=== PATIENT | male | born 1995 | race Caucasian/White ===

== ENCOUNTER → 2020-07-30 14:58 | Outpatient (BNVA) | payer OTHER, SELFPAY | PROVIDERS: PCP Internal Medicine; Visit Provider Hospitalist | DX: Z76.89 Persons encountering health services in other specified circumstances (principal) ==

== ENCOUNTER → 2021-10-22 14:39 | Outpatient (BNVA) | payer OTHER, SELFPAY | PROVIDERS: PCP Internal Medicine; Visit Provider Hospitalist ==

== ENCOUNTER 2024-06-07 13:22 | Outpatient (AMB) | payer OTHER, SELFPAY ==
--- NOTE | 2024-06-07 13:27 | MHC.OFFVIS ---
Vital Signs 06/07/24 13:28 Height 5 ft 5 in Weight 215 lb BMI 35.8 BP 126/78 Blood Pressure Location Lt brachial Position Sitting Pulse 83 Pulse Source Pulse Oximeter Pulse Oximetry (%) 97 Oxygen Delivery Method Room Air Intake Visit Reasons: Asthma Program And Research Coordinator Required: No Allergies No Known Allergies Allergy (Verified 06/07/24 13:31) HPI Comments Details: The patient is a 26-year-old gentleman with a known history of asthma and chronic allergic rhinitis. His asthma had been in good control. Had been on the singular daily. And was not using his rescue inhaler more than once or twice a month. 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 Since he has been working there he has had more worsening respiratory symptoms along with chest tightness wheezing and coughing. Moderate severity. He has been using his rescue inhaler more regularly now more than twice a week. He has also had some nasal congestion. He is also states that he has been dealing with some panic issues. He has had some panic attacks in that is been causing his respiratory status get worse as well. Recently was started on a mood stabilizer. He also was given a prescription for lorazepam but he opted not to fill it. He is also looking into getting counseling which I think is some very important for him. 06/07/2024 the patient is here for a pulmonary follow-up visit. Overall he is doing very well. Continues use the antihistamine with good effect. He backed off on the Singulair and seems to be doing well without it. Can always uses seasonally if need be. He also has a rescue inhaler. He does not use his rescue inhaler often. The patient will need refills at this time. No recent imaging studies to review. No recent pulmonary function studies to review. We did talk about considering allergy shots specially since he has allergic asthma. However, allergy shots will be difficult time to do at this time. One other option will be for him to do local honey as the mild intervention to try to exposed him to the local allergens and try to modify the immune system. Otherwise patient is without other complaints. Will follow-up in a year's time. If the patient develops any worsening symptoms prior to that he will call for an earlier assessment. [facility] Medical History (Updated 06/07/24 @ 13:54 by Zachary Burgos MD) Chronic allergic rhinitis Asthma Social History (Updated 10/22/21 @ 14:40 by WILLIAM Alfaro) Patient Tobacco Use Status: Never used Tobacco Review of Systems Const Denies night sweats ENT Denies change in voice, Denies lip swelling, Denies mouth pain, Reports nasal congestion, Reports nasal discharge and Denies tongue swelling Card Denies chest pain Resp Denies cough GI Denies abdominal pain Musc Denies no additional complaints Neuro Denies Neuro-related abnormal movements Psych Denies no additional complaints Cj/Lymph Denies easy bleeding and Denies lymphadenopathy Aller/Immun Denies lip swelling and Denies tongue swelling Physical Exam Vital Signs: Last Vital Signs Pulse 83 06/07/24 13:28 BP 126/78 06/07/24 13:28 Pulse Ox 97 06/07/24 13:28 Oxygen Delivery Method Room Air 06/07/24 13:28 BMI result Body Mass Index 35.8 Const General: comfortable and alert HEENT Head: Yes normocephalic General nose exam: Abnormal external nose present and Nasal discharge present Eyes Pupils: Equal, round and reactive pupils present Neck Neck: Yes normal visual inspection, Yes full ROM and Yes no lymphadenopathy Chest Chest palpation & inspection: normal inspection of the chest Resp Effort & Inspection: normal respiratory effort Auscultation: clear to auscultation bilaterally Cardio Rate: regular rate Rhythm: regular rhythm Heart sounds: S1 normal heart sound present and S2 normal heart sound present GI Palpation (GI): Soft to palpation and nontender Auscultation: normal bowel sounds General: Yes no CVA tenderness Back/Spine/Pelvis Back: no CVA tenderness Skin General skin exam: no rashes or lesions noted Neuro Cranial nerves: Yes Equal, round and reactive pupils present Extrem General: Yes no clubbing, cyanosis or edema Assessment & Plan Assessment & Plan (1) Asthma: Code(s): J45.909 - Unspecified asthma, uncomplicated Category: Medical Qualifiers: Asthma complication type: unspecified Asthma persistence: persistent Asthma severity: mild Qualified Code(s): J45.30 - Mild persistent asthma, uncomplicated Plan: Continue short-acting beta agonist as needed Consider maintenance inhaler if symptoms persist Continue singular daily (2) Chronic allergic rhinitis: Code(s): J30.9 - Allergic rhinitis, unspecified Category: Medical Plan: Antihistamines as needed Nasal rinsing Plan holding Singulair, consider seasonally BERTA as needed Anti histamines as needed nasal rinsing consider allergy shots F/U 1 year Medications: Refilled albuterol sulfate 90 mcg/actuation 2 puffs inhalation Q6H PRN 8.5 grams 11RF shortness of breath or wheezing Coding Level of Care Code Est Pt Level 4 (06606) Diagnoses Mild persistent asthma, unspecified whether complicated J45.30 Asthma complication type: unspecified Asthma persistence: persistent Asthma severity: mild Chronic allergic rhinitis J30.9 Time Spent (min) 15
[2024-06-07 13:28] VITALS: BP 126/78; PULSE 83; O2SAT 97; BMI 35.8
== END 2024-06-07 14:41 | disposition home or self-care (01) ==
PROVIDERS: PCP Internal Medicine; Visit Provider Hospitalist
DX: J45.30 Mild persistent asthma, uncomplicated (principal); J30.9 Allergic rhinitis, unspecified
CPT/HCPCS: 99214

== ENCOUNTER → 2024-06-07 13:22 | Outpatient (BNVA) | payer OTHER, SELFPAY | PROVIDERS: PCP Internal Medicine; Visit Provider Hospitalist | DX: J45.30 Mild persistent asthma, uncomplicated (principal); J30.9 Allergic rhinitis, unspecified | CPT/HCPCS: 99212 ==

== ENCOUNTER 2024-07-29 10:48 | Outpatient (REF) | payer OTHER, SELFPAY ==
--- NOTE | ~2024-07-29 | XR_ITS ---
EXAMINATION: XR THORACOLUMBAR SPINE CLINICAL INFORMATION: M54.9 - Dorsalgia, unspecified COMPARISON: None available. TECHNIQUE: 4 views of the lumbar spine FINDINGS: The vertebral bodies and posterior elements are normal. The vertebral alignment is normal. Paravertebral soft tissues are normal. There is decreased intervertebral disc space at T12-L1 on flexion versus extension. XR/XR lumbar spine 4V min IMPRESSION: Decreased intervertebral disc space at T12-L1 on flexion versus extension. Electronically signed by: Lanie Baker MD 08/23/2024 08:23 PM MICHELLE RODAS
== END 2024-07-29 10:49 | disposition home or self-care (01) ==
LOC: HO.HOSX 10:48
PROVIDERS: PCP Internal Medicine; Visit Provider Physician Assistant
DX: M54.9 Dorsalgia, unspecified (principal)
CPT/HCPCS: 72110; 99202

== ENCOUNTER 2024-07-29 10:48 | Outpatient (AMB) | payer OTHER, SELFPAY ==
--- NOTE | 2024-07-29 11:04 | A.SPINEOV_ITS ---
Intake Visit Reasons: Spinal stenosis Intake Note: Mr. Goins is here today c/o Low/Mid back pain. Talent Partner Required: No Allergies No Known Allergies Allergy (Verified 07/29/24 11:04) Assessment & Plan Assessment & Plan (1) Back pain: Code(s): M54.9 - Dorsalgia, unspecified Category: Medical Plan Dear Patel, Thank you for referring Mr Mcdaniels to our office today. He is a very nice 28-year-old gentleman who presents to the office today for evaluation of a chronic lower thoracic upper lumbar back pain that is been present for about a year now. He does not recall when it specifically started, he thinks it was sometime in the fall of last year. He may have had a fall from standing around the time it started but he can not really remember. He initially tried to just deal with it, doing activity modifications, stopping certain activities like running and intense exercise. Unfortunately it did not go away. He ultimately saw you in the office, trialed some physical therapy until he could get a lumbar MRI done which showed a T12-L1 large disc herniation on the right side with moderate central canal stenosis, no cord signal change seen. He was sent to us for an evaluation. He does not have any lower extremity symptoms to report, his bladder is working fine, no cauda equina symptoms. The main symptom is the back pain. He seems to do okay sleeping but when he is up and moving around especially with his arms extended forward he can make the pain aggravated. When he is at work and doing certain activities by the end of the day he has to go home and get on a heating pad. This keeps him from doing some of the activities he enjoys with his friends etc.. He will take ibuprofen, Tylenol or leave. They do not seem to do much for him. PMH: Asthma, anxiety Social hx: He does not smoke cigarettes, occasionally uses alcohol and CBD/THC for anxiety Medications: Buspirone, albuterol, Zyrtec Allergies: None Physical exam: He is awake alert oriented no acute distress, his pain localizes right over the thoracolumbar junction. Strength in sensation are normal in the lower extremities. He does have clonus in his ankles, 3+ reflexes the patella. Toes are downgoing. Imaging review: Lumbar MRI done at the [facility] shows large disc herniation off to the right side at T12-L1 causing moderate central canal stenosis. No cord signal change seen. Impression: 28-year-old male who has been dealing with 1 year progressive back pain at the thoracolumbar junction, steadily getting worse, did not respond to conservative treatment in the form of tincture of time, activity modifications, anti-inflammatories and therapy. He does have a large disc herniation off to the right at T12-L1, causing moderate stenosis, no cord signal change. He does have hyperreflexia in the lower extremities but no active symptoms of weakness, numbness or strength loss on my exam. Toes are downgoing. He is on antidepressants and these can cause hyperreflexia. I showed him his MRI, went through the anatomy with him. At this time he is not having myelopathic symptoms, his main symptom is back pain. We did talk about the fact that if he does develop them, he should contact us right away about surgery. In the interim, I am going to get standing AP lateral flexion-extension views, review his imaging with Dr. Umanzor and get back to the patient with a final plan. Thank you for allowing us to care for your patient. The total time spent with this visit with this patient was 45 minutes reviewing history, physical exam, lumbar imaging review, and implementation of treatment plan or further diagnostic testing Gus Umanzor MD,PhD [facility] Orders: Orders XR lumbar spine 4V min Today M54.9 - Dorsalgia, unspecified Coding Level of Care Code New Pt Level 4 (52778) Diagnoses Back pain M54.9
== END 2024-07-29 12:07 | disposition home or self-care (01) ==
PROVIDERS: PCP Internal Medicine; Referring Provider Physician Assistant; Visit Provider Physician Assistant
DX: M54.9 Dorsalgia, unspecified (principal)
CPT/HCPCS: 99204

== ENCOUNTER 2024-08-23 07:38 | Outpatient (REF) | payer OTHER, SELFPAY ==
--- NOTE | ~2024-08-23 | CT_ITS ---
EXAMINATION: CT LUMBAR SPINE WITHOUT CONTRAST CLINICAL INFORMATION: Dorsalgia COMPARISON: None available. TECHNIQUE: Axial CT of the lumbar spine without contrast. Coronal sagittal reformats reviewed. This CT examination was performed using dose optimization techniques as appropriate, variously including the following: *Automated exposure control *Adjustment of mA and/or kV according to patient size (this includes techniques or standardized protocols for targeted exams where dose is matched to indication/reason for exam; i.e. extremities or head) *Use of iterative reconstruction technique DLP; 882 mGy-cm FINDINGS: There are 5 lumbar vertebral bodies. Vertebral body heights and intervertebral disc spaces are maintained. There is a Schmorl's node at the superior right L4 endplate. There is a disc osteophyte complex eccentric to the right at the T12-L1 level resulting in mild canal stenosis and moderate right foraminal stenosis. There is otherwise no significant spinal canal or foraminal stenosis throughout the remainder of the lumbar spine. The paravertebral soft tissues are unremarkable. CT/CT lumbar spine wo IV con IMPRESSION: Disc osteophyte complex at the T12-L1 level resulting in mild canal stenosis and moderate right foraminal stenosis. Electronically signed by: Lanie Baker MD 08/23/2024 08:22 PM MICHELLE
== END 2024-08-23 07:39 | disposition home or self-care (01) ==
LOC: HO.CT 07:38
PROVIDERS: PCP Internal Medicine; Visit Provider Physician Assistant
DX: M54.9 Dorsalgia, unspecified (principal)
CPT/HCPCS: 72131

== ENCOUNTER 2024-09-06 11:21 | Outpatient (AMB) | payer OTHER, SELFPAY ==
--- NOTE | 2024-09-06 11:38 | A.SPINEOV_ITS ---
Intake Visit Reasons: follow up on a day is here Intake Note: Mr. Mcdaniels is here today for a F/u. Transportation Project Manager Required: No Allergies No Known Allergies Allergy (Verified 09/06/24 11:39) Assessment & Plan Assessment & Plan (1) Back pain: Code(s): M54.9 - Dorsalgia, unspecified Category: Medical Plan Mr Mcdaniels is here in follow-up. He reports that his back pain is better, he is only getting occasional flare-ups at this time. Denies any tingling numbness or focal weakness in the legs. CT scan showed that he has a little bit of calcification around the disc but it is not fully calcified. The plan was to do a T12-L1 microdiskectomy with metrics tubes, but since he is feeling better, we will just continue to monitor him. I examined him again today in his strength in his legs is excellent, some hyperreflexia in the lower extremities with clonus. We are just monitoring the situation for now since he has no neurological deficits or symptoms and his back pain is better. Dr. Umanzor updated on the patient's status. We will see him back in 1 month. Total amount of time spent in this visit was 20 minutes in discussion of symptoms, lumbar CT scan imaging results and subsequent plan of care Gus Umanzor MD,PhD [facility] Coding Level of Care Code Est Pt Level 3 (27161) Diagnoses Back pain M54.9
== END 2024-09-06 12:13 | disposition home or self-care (01) ==
PROVIDERS: PCP Internal Medicine; Visit Provider Physician Assistant
DX: M54.9 Dorsalgia, unspecified (principal)
CPT/HCPCS: 99213

== ENCOUNTER → 2024-09-06 11:21 | Outpatient (BNVA) | payer OTHER, SELFPAY | PROVIDERS: PCP Internal Medicine; Visit Provider Physician Assistant | DX: M54.9 Dorsalgia, unspecified (principal) | CPT/HCPCS: 99212 ==

== ENCOUNTER → 2024-10-11 13:05 | Outpatient (BNVA) | payer OTHER, SELFPAY | PROVIDERS: PCP Internal Medicine; Visit Provider Physician Assistant | DX: M54.9 Dorsalgia, unspecified (principal) | CPT/HCPCS: 99212 ==

== ENCOUNTER 2025-01-10 11:25 | Outpatient (AMB) | payer OTHER, SELFPAY ==
--- NOTE | 2025-01-10 11:30 | A.SPINEOV_ITS ---
Intake Visit Reasons: 3 month follow up Intake Note: Mr. Mcdaniels is here today for a 3 month F/u. Behavioral Psychologist Required: No Allergies No Known Allergies Allergy (Verified 01/10/25 11:34) Assessment & Plan Assessment & Plan (1) Back pain: Code(s): M54.9 - Dorsalgia, unspecified Category: Medical Plan Mr Mcdaniels came back in today for follow-up. He has been doing very well. His low back symptoms are for the most part gone. He will feel them from time to time but he has been able to extend his activities and is living a much more active life. He has not returned to doing gym activities, but really isn't pressed or feeling the need to jump back into those right away any way. Has not had any lower extremity symptoms, no bowel or bladder symptoms, no issues with erection. His strength is excellent, gait is normal. We had previously discussed with Dr. Umanzor, if his symptoms are not getting worse and he is having no neurological deficits, there is no role for surgery so we will just continue to monitor and I will see him back in 6 months. Total amount of time spent in this visit was 20 minutes in discussion of symptoms, lumbar imaging results and subsequent plan of care Gus Umanzor MD,PhD [facility] Coding Level of Care Code Est Pt Level 3 (51910) Diagnoses Back pain M54.9
== END 2025-01-10 11:50 | disposition home or self-care (01) ==
LOC: HO.HNS 11:26
PROVIDERS: PCP Internal Medicine; Visit Provider Physician Assistant
DX: M54.9 Dorsalgia, unspecified (principal)
CPT/HCPCS: 99213

== ENCOUNTER → 2025-01-10 11:25 | Outpatient (BNVA) | payer OTHER, SELFPAY | PROVIDERS: PCP Internal Medicine; Visit Provider Physician Assistant | DX: M54.9 Dorsalgia, unspecified (principal) | CPT/HCPCS: 99212 ==

== ENCOUNTER 2025-07-18 13:20 | Outpatient (AMB) | payer OTHER, SELFPAY ==
--- NOTE | 2025-07-18 13:36 | HO.SPINEOV ---
Intake Visit Reasons: 6 month f/u Intake Note: Mr. Mcdaniels is here today for a 6 month F/u. Member Certification Manager Required: No Allergies No Known Allergies Allergy (Verified 01/10/25 11:34) Assessment & Plan Assessment & Plan (1) Back pain: Code(s): M54.9 - Dorsalgia, unspecified Category: Medical Plan Mr Mcdaniels is here in follow-up. He continues to do well in terms of his improvement compared to last year. He has back pain on and off from time to time with occasional flare-ups. Sometimes these will be worse than others, but not nearly as bad as they were a year ago. He is back to work and seems to be functioning normal. Denies any lower extremity symptoms, no bowel or bladder incontinence etc.. On exam his strength is normal, gait is normal, still has some hyperreflexia but that is his baseline. I would like to order follow-up imaging just to be able to give him some reassurance that the disc herniation has gone away and allow him to resume activities as tolerated. He is a very young gentleman and I would like to be able to offer him peace of mind that he can return to his activities without restriction. Because he does have just a little bit of back pain persistent and his hyperreflexia I think it is worth looking into. Total amount of time spent in this visit was 20 minutes in discussion of symptoms, ordering imaging and subsequent plan of care Gus Umanzor MD,PhD [facility] Orders: Orders MR thoracic spine wo con Today M54.9 - Dorsalgia, unspecified Coding Level of Care Code Est Pt Level 3 (87877) Diagnoses Back pain M54.9
--- OUTSIDE RECORDS SUMMARY | 2025-07-18 14:25 | XMS_ITS | Clinical Summary ---
Author Organization Patient Business Ser [facility] Address [address] [place] [address] Care Team Providers Care Environmental Marketing Representative Name Role Phone MatiTerry Primary Care Provider [phone] Encounters Date Type Department Care Team Description 05/15/2025 11:00 AM EDT Ancillary Procedure [facility] - [address] [place] [address] Lightheadedness; Syncope from Last 3 Months Social History Tobacco Use Types Packs/Day Years Used Date Smoking Tobacco: Never Assessed Sex and Gender Information Value Date Recorded Sex Assigned at Not on file Legal Sex Male 2:13 AM EST Gender Identity Not on file Sexual Orientation Not on file Last Filed Vital Signs Vital Sign Reading Time Taken Comments Blood Pressure 133/83 05/15/2025 11:45 AM EDT Pulse - - Temperature - - Respiratory Rate - - Oxygen Saturation - - Inhaled Oxygen Concentration - - Weight 98.4 kg (217 lb) 05/15/2025 11:45 AM EDT Height 165.1 cm (5' 5 ) 05/15/2025 11:45 AM EDT Body Mass Index 36.11 05/15/2025 11:45 AM EDT Plan of Treatment Health Maintenance Due Date Last Done Comments DTaP,Tdap,and Td Vaccines (7 - Td or Tdap) 10/23/2017 10/23/2007, 03/29/2002, 06/16/1999, Additional history exists Depression Screening 09/18/2024 HPV Vaccines (1 - 3-dose SCDM series) 2024 HIV Screening 04/01/2025 Hepatitis C Screening 04/01/2025 Social Influencers of Health Screening 04/01/2025 COVID-19 Vaccine ( season) 2025 Influenza Vaccine (#1) 2025 Cholesterol Screening (Lipid Panel) 04/01/2030 04/01/2025 RSV Immunization Adult Patients (1 - 1-dose 75+ series) 2072 Hepatitis B Vaccines Completed 07/27/1998, 1997, 1997 HIB Vaccines Completed 03/12/1999, 12/1997, 02/16/1998, Additional history exists IPV Vaccines Completed 03/29/2002, 05/20, 02/16/1998, Additional history exists MMR Vaccines Completed 03/29/2002, 03/12/1999 Meningococcal ACWY Vaccine Aged Out 03/19/2010 N o longer eligible based on patient's age to complete this topic Varicella Vaccines Completed 03/19/2010, 11/03/1998 Hepatitis A Vaccines Aged Out No long er eligible based on patient's age to complete this topic Meningococcal B Vaccine Aged Out No l onger eligible based on patient's age to complete this topic Pneumococcal Vaccine: Pediatrics (0 to 5 Years) and At-Risk Patients (6 to 49 Years) Aged Out No longer eligible based on patient's age to complete this topic RSV Immunization Patients Under 20 months Aged Out No longer eligible based on patient's age to complete this topic Procedures Procedure Name Priority Date/Time Associated Diagnosis Comments TRANSTHORACIC ECHOCARDIOGRAM (TTE) COMPLETE Routine 05/15/2025 11:45 AM EDT Lightheadedness Syncope LIPID PANEL WITH REFLEX TO DIRECT LDL Routine 04/01/2025 9:18 AM EDT Routine general medical examination at a health care facility Light headed Asthma Insomnia from Last 3 Months or Most Recently Relevant to Health Maintenance Results * TRANSTHORACIC ECHOCARDIOGRAM (TTE) COMPLETE (05/15/2025 11:45 AM EDT) Left Atrium Minor [place] 5.7 cm CV PACS Left Atrium Major [place] 6.2 cm CV PACS LA Area Sys (A2C) 23 cm2 CV PACS LA Area Sys (A4C) 20 cm2 CV PACS LA Volume (BP) 63 mL CV PACS RA Area 15.7 cm2 CV PACS RA 2D Volume 39 mL CV PACS AV Mean Gradient 4 mmHg CV PACS AV Mean Gradient 4 mmHg CV PACS AV Mean Gradient 4 mmHg CV PACS AV Mean Gradient 4 mmHg CV PACS Ao VTI 28.4 cm CV PACS AV Peak Andrew 1.4 m/s CV PACS AV Peak Gradient 8 mmHg CV PACS AV Area Continuity Equation 1.9 cm2 CV PACS AV Area Peak Velocity 2.0 cm2 CV PACS Aortic Sinus Valsalva 2.9 cm CV PACS Ascending Aorta 3.1 cm CV PACS IVSD 0.9 0.6 - 1.0 cm CV PACS LVIDD 4.4 4.2 - 5.8 cm CV PACS LVIDS 2.6 2.5 - 4.0 cm CV PACS LVOT Diameter 1.9 cm CV PACS LVOT Mean Grad 2 mmHg CV PACS LVOT Peak VTI 19.2 cm CV PACS LVOT Mean Andrew 0.6 m/s CV PACS LVOT Peak Andrew 1.0 m/s CV PACS LVOT Peak Gradient 4 mmHg CV PACS LVPWD 0.9 0.6 - 1.0 cm CV PACS MV E' Tissue Velocity Lateral 13 cm/s CV PACS MV E' Tissue Velocity Septal 10 cm/s CV PACS LVOT Area 2.8 cm2 CV PACS LVOT Stroke Volume 55 mL CV PACS E Wave Deceleration Time 190 119 - 242 ms CV PACS MV Peak A Andrew 0.57 m/s CV PACS MV Peak E Andrew 0.76 m/s CV PACS MV Mean Gradient 1 mmHg CV PACS MV Mean Gradient 1 mmHg CV PACS MV Mean Gradient 1 mmHg CV PACS MV VTI 26.4 cm CV PACS Mitral Valve Max Velocity 0.9 m/s CV PACS MV Peak Gradient 3 mmHg CV PACS MV Area Continuity Equation 2.1 cm2 CV PACS PV Acceleration Time 130 ms CV PACS PV Acceleration Time 137 ms CV PACS PV Acceleration Time 134 ms CV PACS RV Diastolic Basal Dimension 3.0 2.5 - 4.1 cm CV PACS RV S' 14 cm/s CV PACS TAPSE 21 mm CV PACS E/E' Ratio Septal 8 CV PACS E/E' Ratio Averaged 7 CV PACS Relative Wall Thickness ratio 0.41 CV PACS LVOT:AV VTI Index 0.68 CV PACS FS 41 % CV PACS LV Mass 2D 128 g CV PACS MV VTI:LVOT VTI ratio 1.4 CV PACS LVOT flow 170 mL/s CV PACS AV Velocity Ratio 0.71 CV PACS E/A Ratio 1.3 CV PACS E/E' Ratio Lateral 6 CV PACS BSA 2.12 m2 CV PACS LA Volume Index (BP) 31 mL/m2 CV PACS LVIDD Index 2.15 cm/m2 CV PACS LVIDS Index 1.27 cm/m2 CV PACS LV Mass Index 2D 62 50 - 102 g/m2 CV PACS LVOT Stroke Index 27 mL/m2 CV PACS RA 2D Volume Index 19 18 - 32 mL/m2 CV PACS KHRIS Index (VTI) 0.93 cm2/m2 CV PACS KHRIS Index (Pk Andrew) 0.98 cm2/m2 CV PACS Ascending Aorta Index 1.51 cm/m2 CV PACS Anatomical Region Laterality Modality Ultrasound Narrative 06/02/2025 4:46 PM EDT 1. Normal biventricular size and systolic function. Normal left ventricular regional wall motion with an ejection fraction of 60 to 65%. 2. No hemodynamically significant valve disease. 3. Normal left ventricular diastolic function. Technically adequate, 2D, M-mode, and Doppler echocardiogram without significant pathologic findings. Left Ventricle Left ventricle cavity size is normal. Wall thickness is normal. Systolic function is normal with an ejection fraction of 60-65%. There are no regional LV wall motion abnormalities. There is no diastolic dysfunction and normal left atrial pressure. Right Ventricle Right ventricle cavity appears normal. Systolic function is normal. Left Atrium Left atrium cavity size is normal. Right Atrium Right atrium cavity is normal. IVC/SVC Inferior vena cava structure is normal. RA pressures is estimated to be 3 mmHg (IVC diameter <21 mm and decreases >50% during inspiration). Mitral Valve Mitral valve structure is normal. The leaflets exhibit normal excursion. There is no regurgitation or stenosis. Tricuspid Valve Tricuspid valve structure is normal. There is trace regurgitation. There is no evidence of tricuspid valve stenosis. Cannot assess RVSP. Aortic Valve The aortic valve is trileaflet. There is no regurgitation or stenosis. Pulmonic Valve Visualized portions of the pulmonic valve appear normal. No significant pulmonic valve regurgitation. There is no evidence of pulmonic valve stenosis. Ascending Aorta The aorta appears normal in size. Pericardium Pericardium appears normal. There is no pericardial effusion. Study Details Overall the study quality was adequate. Wall Scoring Baseline Score Index: 1.00 The left ventricular wall motion is normal. us Terry Thorne DO CV ECHO PROCEDURES Final Resu lt * Lipid panel with reflex to direct LDL (04/01/2025 9:18 AM EDT) Cholesterol 162 0 - 200 mg/dL LAB CHEMISTRY METHOD 04/01/2025 12:29 PM EDT [facility] Triglycerides 67 0 - 150 mg/dL LAB CHEMISTRY METHOD 04/01/2025 12:29 PM EDT [facility] HDL 52 >=40 mg/dL LAB CHEMISTRY METHOD 04/01/2025 12:29 PM EDT [facility] LDL Calculated 97 0 - 100 mg/dL LAB CHEMISTRY METHOD 04/01/2025 12:29 PM EDT [facility] VLDL Cholesterol Hector 13.4 mg/dL LAB CHEMISTRY METHOD 04/01/2025 12:29 PM EDT [facility] Non HDL Chol. (LDL+VLDL) 110 <145 mg/dL LAB CHEMISTRY METHOD 04/01/2025 12:29 PM EDT [facility] Chol/HDL Ratio 3.1 0.0 - 4.4 LAB CHEMISTRY METHOD 04/01/2025 12:29 PM EDT [facility] Blood Venous blood specimen / Unknown Venipuncture / Unknown 04/01/2025 9:18 AM EDT 04/01/2025 9:18 AM EDT [facility] LAB BLOOD ORDERABLES Final Resul t [facility] [address] [place] [address], from Last 3 Months or Most Recently Relevant to Health Maintenance Insurance [facility] Care Teams Environmental Marketing Representative Relationship Specialty Start Date End Date Terry Thorne DO [address] [place] [address] [phone] PCP - General Internal Medicine 04/01/25
== END 2025-07-18 13:46 | disposition home or self-care (01) ==
LOC: HO.HNS 13:21
PROVIDERS: PCP Internal Medicine; Visit Provider Physician Assistant
DX: M54.9 Dorsalgia, unspecified (principal)
CPT/HCPCS: 99213

== ENCOUNTER → 2025-07-18 13:20 | Outpatient (BNVA) | payer OTHER, SELFPAY | PROVIDERS: PCP Internal Medicine; Visit Provider Physician Assistant | DX: M54.9 Dorsalgia, unspecified (principal) | CPT/HCPCS: 99212 ==